=== PATIENT | female | born 2000 | race Caucasian/White ===

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

== ENCOUNTER 2022-02-10 01:57 | Emergency (ER) | payer BC ==
[2022-02-10] VITALS (7 sets, daily range): BP systolic 98–137; BP diastolic 58–94
[~2022-02-10] VITALS: Ht 162.6 cm; Wt 77.0 kg
[~2022-02-10 01:57] MED LIST changes: +AMOXICILLIN500 MG PO
[2022-02-10 02:39] LABS: HEMOGLOBIN 12.6 g/dl (12.0-16.0); IMMATURE GRANULOCYTES 0.1 % (0.0-5.0); MEAN CELL VOLUME 90.7 fL CALC (80.0-100.0); MEAN CORPUSCULAR HGB 30.1 pG CALC (26.0-32.0); MEAN CORPUSCULAR HGB CONC 33.2 g/dL CAL (32.0-36.0); NEUT# 7.28 thou/uL (2.00-7.15); RED BLOOD COUNT 4.19 mill/uL (4.20-5.60); RED CELL DISTRI WIDTH 11.8 % (11.5-15.5)
[2022-02-10 02:42] LABS: URINE BILIRUBIN - DIPSTICK NEGATIVE (NEGATIVE); URINE BLOOD DIPSTICK NEGATIVE (NEGATIVE); URINE COLOR YELLOW; URINE GLUCOSE - DIPSTICK NEGATIVE (NEGATIVE); URINE KETONE 40 mg/dL (NEGATIVE); URINE LEUK ESTERASE NEGATIVE (NEGATIVE); URINE PROTEIN - DIPSTICK NEGATIVE (NEG-TRACE); URINE UROBILINOGEN - DIPSTICK 0.2 E.U./dL (0.2)
[2022-02-10 02:45] LABS: URINE NITRITE - DIPSTICK NEGATIVE (Negative)
[2022-02-10 02:53] LABS: ALBUMIN 4.1 g/dL (3.2-5.0); ALKALINE PHOSPHATASE 72 u/l (38-126); AMYLASE 86 u/l (30-110); ANION GAP 12 (6-22 (CALC)); BILIRUBIN, TOTAL 0.7 mg/dL (0.0-1.4); BUN 13 mg/dL (8-21); BUN/CREATININE RATIO 20 (12-20 (CALC)); CARBON DIOXIDE 22 mmol/l (22-30); CHLORIDE 106 mmol/l (95-108); CREATININE 0.6 mg/dL (0.5-1.0); GFR FOR AFR.AMER. > 60 ML/MIN (>=60 (CALC)); GFR OTHER RACES > 60 ML/MIN (>=60 (CALC)); LIPASE 70 u/l (23-300); POTASSIUM 3.6 mmol/l (3.5-5.1); SGOT/AST 21 u/l (14-36); SODIUM 137 mmol/l (137-146); TOTAL PROTEIN 7.3 g/dL (6.3-8.2)
[2022-02-10] MEDS ORDERED: NAPROXEN500 MG PO (05:12)
== END 2022-02-10 05:26 | disposition home or self-care (01) | DRG 556 ==
LOC: ED 01:57
PROVIDERS: Emergency Medicine
DX: M79.18 Myalgia, other site (principal)
CPT/HCPCS: Q9967

== ENCOUNTER 2022-05-20 20:51 | Emergency (ER) | payer BC ==
[~2022-05-20] VITALS: Ht 162.6 cm; Wt 77.0 kg
[~2022-05-20 20:51] MED LIST changes: +NAPROXEN500 MG PO
[2022-05-20 21:09] VITALS: BP 124/80
[2022-05-20 21:30] VITALS: BP 113/72
[2022-05-20 22:00] VITALS: BP 110/66
[2022-05-20] MEDS ORDERED: AMOXICILLIN500 MG PO (22:11)
[2022-05-20] MEDS ORDERED: CLARITIN10 M1 PO (22:11)
[2022-05-20 22:17] VITALS: BP 110/66
== END 2022-05-20 22:22 | disposition home or self-care (01) | DRG 153 ==
LOC: ED 20:51
DX: J02.9 Acute pharyngitis, unspecified (principal); Z20.822 Contact with and (suspected) exposure to COVID-19

== ENCOUNTER 2022-10-16 04:51 | Emergency (ER) | payer BC ==
[~2022-10-16] VITALS: Ht 162.6 cm; Wt 77.2 kg
[~2022-10-16 04:51] MED LIST changes: +CLARITIN10 M1 PO
[2022-10-16 05:00] VITALS: BP 135/84
[2022-10-16 05:29] LABS: URINE BILIRUBIN - DIPSTICK SMALL (NEGATIVE); URINE BLOOD DIPSTICK NEGATIVE (NEGATIVE); URINE COLOR YELLOW; URINE GLUCOSE - DIPSTICK NEGATIVE (NEGATIVE); URINE KETONE >=80 mg/dL (NEGATIVE); URINE LEUK ESTERASE NEGATIVE (NEGATIVE); URINE NITRITE - DIPSTICK NEGATIVE (Negative); URINE PH 5.5 (4.5-8.0); URINE PROTEIN - DIPSTICK TRACE mg/dL (NEG-TRACE); URINE SPECIFIC GRAVITY >=1.030; URINE UROBILINOGEN - DIPSTICK 0.2 E.U./dL (0.2)
[2022-10-16 05:30] LABS: HCG SERUM/URINE (NEG/POS) NEGATIVE (NEGATIVE)
[2022-10-16 05:33] LABS: BASO% 0.3 % (0-3); EOS% 0.2 % (0-8); HEMATOCRIT 38.8 % (37.0-47.0); IMMATURE GRANULOCYTES 0.2 % (0.0-5.0); LYMPH% 4.7 % (15-41); MEAN CORPUSCULAR HGB 29.8 pG CALC (26.0-32.0); MEAN CORPUSCULAR HGB CONC 33.5 g/dL CAL (32.0-36.0); MONO% 11.5 % (2-13); NEUT# 5.48 thou/uL (2.00-7.15); NEUT% 83.1 % (42-76); RED BLOOD COUNT 4.36 mill/uL (4.20-5.60); RED CELL DISTRI WIDTH 11.8 % (11.5-15.5)
[2022-10-16 05:43] LABS: ALBUMIN 4.6 g/dL (3.2-5.0); ALKALINE PHOSPHATASE 72 u/l (38-126); ANION GAP 14 (6-22 (CALC)); BILIRUBIN, TOTAL 0.6 mg/dL (0.02-1.3); BUN 12 mg/dL (8-21); BUN/CREATININE RATIO 16 (12-20 (CALC)); CARBON DIOXIDE 20 mmol/l (22-30); CHLORIDE 106 mmol/l (95-108); CREATININE 0.7 mg/dL (0.5-1.0); GFR FOR AFR.AMER. > 60 ML/MIN (>=60 (CALC)); GFR OTHER RACES > 60 ML/MIN (>=60 (CALC)); POTASSIUM 3.8 mmol/l (3.5-5.1); SGOT/AST 25 u/l (14-36); SODIUM 136 mmol/l (137-146); TOTAL PROTEIN 7.9 g/dL (6.3-8.2)
[2022-10-16 06:01] VITALS: BP 117/79
[2022-10-16 06:15] VITALS: BP 121/80
[2022-10-16] MEDS ORDERED: PHENERGAN25 MG RE (06:26)
[2022-10-16 06:30] VITALS: BP 116/75
[2022-10-16 06:33] VITALS: BP 116/75
== END 2022-10-16 06:40 | disposition home or self-care (01) | DRG 179 ==
LOC: ED 04:51
PROVIDERS: Family Medicine
DX: U07.1 COVID-19 (principal)

== ENCOUNTER 2024-10-14 08:19 | Emergency (ER) | payer BC ==
[~2024-10-14] VITALS: Ht 165.1 cm; Wt 74.0 kg
[~2024-10-14 08:19] MED LIST changes: +B-121000 MC6 PO; +CLINDAMYCIN11 EX; +PHENERGAN25 MG RE; +PROZAC20 M1 PO
[2024-10-14 08:24] VITALS: BP 111/77
[2024-10-14 08:30] VITALS: BP 108/74
[2024-10-14 09:00] VITALS: BP 113/78
[2024-10-14] MEDS ORDERED: ACETAMINOPHEN 160 MG/5 ML DOSE PO ONE (09:00)
[2024-10-14] MEDS ORDERED: AMOXIL400 MG/5 M PO (09:02)
[2024-10-14 09:06] VITALS: BP 113/78
== END 2024-10-14 09:13 | disposition home or self-care (01) | DRG 203 ==
LOC: ED 08:19
DX: J20.9 Acute bronchitis, unspecified (principal); Z20.822 Contact with and (suspected) exposure to COVID-19